=== PATIENT | female | born 1980 | race Caucasian/White ===

== ENCOUNTER 2019-05-16 14:44 | Emergency (ER) | payer SELFPAY, OTHER ==
[2019-05-16] MEDS ORDERED: KETOROLAC 30 MG INJ IV (15:14)
[2019-05-16] MEDS: KETOROLAC 60 MG INJ IM (15:50)
== END 2019-05-16 16:43 | disposition home or self-care (01) ==
LOC: E/R 14:44
DX: R07.89 Other chest pain (principal); R40.2142 Coma scale, eyes open, spontaneous, at arrival to emergency department; R40.2362 Coma scale, best motor response, obeys commands, at arrival to emergency department; R40.2252 Coma scale, best verbal response, oriented, at arrival to emergency department
CPT/HCPCS: 71045; 81025; 93005; 96372; 99284-25